=== PATIENT | male | born 1990 | race Caucasian/White ===

== ENCOUNTER 2022-01-05 16:53 | Emergency (ER) | payer OTHER ==
[2022-01-05] MEDS ORDERED: Ketorolac Tromethamine 30 MG/ML VIAL ONE (17:48)
== END 2022-01-05 17:50 | disposition home or self-care (01) ==
LOC: CSHERS 16:53
DX: U07.1 COVID-19 (principal); I10 Essential (primary) hypertension
CPT/HCPCS: 96372; 99283; J1885

== ENCOUNTER 2024-03-15 13:39 | Emergency (ER) | payer OTHER ==
[~2024-03-15 13:39] MED LIST: Iopamidol 370 76% 100 ML VIAL ONE
[2024-03-15 14:12] LABS: #Basophils 0.02 10x3/uL (0.0-0.2); #Eosinphils 0.01 10x3/uL (0.0-0.5); #Monocytes 0.49 10x3/uL (0.0-1.1); %Basophils 0.1 % (0.0-2.0); %Eosinophils 0.1 % (0.0-6.0); %Lymphocytes 3.2 % (18.0-47.0); %Monocytes 2.6 % (0.0-10.0); %Neutrophils 93.5 % (40.0-75.0); Hematocrit 48.1 % (38.8-50.0); Hemoglobin 16.6 g/dL (13.5-17.5); Mean Corpuscular HGB CONC 34.5 g/dL (32.0-36.0); Mean Corpuscular Hemoglobin 29.2 pg (27.0-33.0); Mean Corpuscular Volume 84.5 fL (81.2-95.1); Mean Platelet Volume 8.6 fL (7.4-10.4); Platelet Count 310 10x3/uL (150-450); RBC Distribution Width 12.2 % (11.5-14.5); Red Blood Cell (RBC) Count 5.69 10x6/uL (4.32-5.72); White Blood Cell (WBC) Count 18.7 10x3/uL (3.5-10.5)
[2024-03-15] MEDS ORDERED: Morphine 4 MG/ML VIAL ONE ×2 (14:13→15:14)
[2024-03-15] MEDS ORDERED: Ketorolac Tromethamine 30 MG (1 mL) VIAL ONE (14:14)
[2024-03-15] MEDS ORDERED: Ondansetron PF 4 MG/2 ML Vial ONE (14:14)
[2024-03-15 14:33] LABS: ALT (SGPT) 53 U/L (8-55); AST (SGOT) 32 U/L (5-34); Albumin 4.5 g/dL (3.5-5.0); Alkaline Phosphatase 97 U/L (40-110); Anion Gap 14 mmol/L (10-20); BUN (Urea Nitrogen) 18 mg/dL (8.9-20.6); Bilirubin, Total 0.6 mg/dL (0.2-1.2); Calc. Creatinine Clearance 0 mL/min (70-130); Calcium 9.9 mg/dL (7.8-10.44); Carbon Dioxide 23 mmol/L (22-29); Chloride 108 mmol/L (98-107); Estimated GFR 87; Globulin 3.7 g/dL (2.4-3.5); Glucose 149 mg/dL (70-105); Potassium 4.3 mmol/L (3.5-5.1); Protein, Total 8.2 g/dL (6.0-8.3); Sodium 141 mmol/L (136-145)
[2024-03-15 14:46] LABS: Lipase Less than 4 U/L (8-78)
[2024-03-15] MEDS ORDERED: cefTRIAXone (ROCEPHIN) 1 GM VIAL ONE (15:01)
== END 2024-03-15 17:16 | disposition home or self-care (01) ==
LOC: CSHERS 13:39
DX: K52.9 Noninfective gastroenteritis and colitis, unspecified (principal); I10 Essential (primary) hypertension
CPT/HCPCS: 36415; 74177; 76705; 80053; 83605; 83690; 85025; 87040; 96372; 96374; 96375; 96376; J0696; J1885; J2272; J2405; Q9967

== ENCOUNTER 2024-03-28 07:24 | Emergency (ER) | payer OTHER ==
[2024-03-28] MEDS ORDERED: diphenhydrAMINE 50 MG/ML VIAL ONE (07:46)
[2024-03-28] MEDS ORDERED: Haloperidol Lactate 5 MG/ML VIAL ONE (07:46)
[2024-03-28] MEDS ORDERED: Dicyclomine 20 MG/2 ML VIAL ONE (08:19)
[2024-03-28 08:54] LABS: #Basophils 0.02 10x3/uL (0.0-0.2); #Eosinphils 0.32 10x3/uL (0.0-0.5); #Monocytes 0.61 10x3/uL (0.0-1.1); #Neutrophils 9.47 10x3/uL (1.5-8.4); %Basophils 0.2 % (0.0-2.0); %Eosinophils 2.6 % (0.0-6.0); %Neutrophils 76.8 % (40.0-75.0); Hematocrit 46.8 % (38.8-50.0); Mean Corpuscular HGB CONC 34.2 g/dL (32.0-36.0); Mean Corpuscular Volume 84.9 fL (81.2-95.1); Platelet Count 325 10x3/uL (150-450); RBC Distribution Width 12.4 % (11.5-14.5); Red Blood Cell (RBC) Count 5.51 10x6/uL (4.32-5.72); White Blood Cell (WBC) Count 12.3 10x3/uL (3.5-10.5)
[2024-03-28 08:59] LABS: ALT (SGPT) 101 U/L (8-55); AST (SGOT) 93 U/L (5-34); Albumin 4.1 g/dL (3.5-5.0); Alkaline Phosphatase 81 U/L (40-110); Anion Gap 16 mmol/L (10-20); BUN (Urea Nitrogen) 15 mg/dL (8.9-20.6); Bilirubin, Total 0.4 mg/dL (0.2-1.2); Calc. Creatinine Clearance 0 mL/min (70-130); Calcium 9.4 mg/dL (7.8-10.44); Carbon Dioxide 20 mmol/L (22-29); Chloride 110 mmol/L (98-107); Estimated GFR 97; Globulin 3.1 g/dL (2.4-3.5); Glucose 169 mg/dL (70-105); Lipase 19 U/L (8-78); Potassium 3.7 mmol/L (3.5-5.1); Protein, Total 7.2 g/dL (6.0-8.3); Sodium 142 mmol/L (136-145)
[2024-03-28] MEDS ORDERED: Lorazepam 2 MG/ML VIAL ONE (09:12)
[2024-03-28] MEDS ORDERED: Amlodipine 5 MG TAB ONE (10:15)
== END 2024-03-28 10:47 | disposition home or self-care (01) ==
LOC: CSHERS 07:24
DX: R11.2 Nausea with vomiting, unspecified (principal); F12.90 Cannabis use, unspecified, uncomplicated; R74.01 Elevation of levels of liver transaminase levels; F43.10 Post-traumatic stress disorder, unspecified; I10 Essential (primary) hypertension
CPT/HCPCS: 80053; 83605; 83690; 85025; 93005; 93010; 96361; 96372; 96374; 96375; J1200; J1630; J2060